=== PATIENT | female | born 1965 | race Caucasian/White ===

== ENCOUNTER → 2017-11-11 | Outpatient (CLI) | payer OTHER ==
[~2017-11-11] VITALS: Ht 157.5 cm; Wt 57.6 kg
[~2017-11-11] MED LIST: ALLERGY10 M1 PO; ESTARYLLA1 EACH PO; MELATONIN10 M2 PO
== END | disposition home or self-care (01) ==
LOC: AMB 12:39
DX: K62.89 Other specified diseases of anus and rectum (principal); Z87.891 Personal history of nicotine dependence; Z88.1 Allergy status to other antibiotic agents